=== PATIENT | female | born 1970 | race Caucasian/White ===

== ENCOUNTER → 2019-10-31 | Outpatient (CLI) | payer BC ==
[~2019-10-31] MED LIST: ADVAIR HFA1 AE2 IH; ALBUTEROL0.83 MG/ML IH; ALBUTEROL1.25 MG/3 IH; ALLEGRA-D 24HOU1 T24 PO; CLONAZEPAM0.5 MG PO; CYMBALTA 20MG20 MG PO; DESIPRAMINE PO; FLEXERIL10 MG PO; IPRATROPIUM BROM3 M1 IH; LEVAQUIN 5500 MG/TA1 PO; NORCO 325 MG-51 TAB PO; OMEPRAZOLE40 MG PO; PREDNISONE20 MG PO; PROCTOSOL HC2.5% RC; PROVENTIL0.09 MG/A1 IH; REQUIP0.25 MG PO; RT ADVAIR HFA 1112 G IH; SYNTHROID0.05 MG/TA PO; ULTRAM 50MG TAB50 MG; ZOFRAN 4MG T4 MG/TAB PO
== END ==
LOC: ZCOL.LAB 14:53
DX: Z20.828 Contact with and (suspected) exposure to other viral communicable diseases (principal)